=== PATIENT | female | born 1980 | race Caucasian/White ===

== ENCOUNTER 2021-04-25 20:03 | Emergency (ER) | payer OTHER ==
[~2021-04-25] VITALS: Ht 170.2 cm; Wt 81.7 kg
== END 2021-04-25 23:22 | disposition home or self-care (01) ==
LOC: ED 20:03
DX: S61.011A Laceration without foreign body of right thumb without damage to nail, initial encounter (principal); S61.012A Laceration without foreign body of left thumb without damage to nail, initial encounter; S01.112A Laceration without foreign body of left eyelid and periocular area, initial encounter; S61.411A Laceration without foreign body of right hand, initial encounter; S80.812A Abrasion, left lower leg, initial encounter; Z23 Encounter for immunization; V89.9XXA Person injured in unspecified vehicle accident, initial encounter; Z87.891 Personal history of nicotine dependence; Z91.030 Bee allergy status; Z88.2 Allergy status to sulfonamides
CPT/HCPCS: 12002; 12011; 73130; 90471; 90715; 99283-25

== ENCOUNTER 2024-04-04 22:26 | Emergency (ER) | payer BC ==
[~2024-04-04] VITALS: Ht 170.2 cm; Wt 80.0 kg
[2024-04-04] MEDS ORDERED: ondansetron HCL 4 MG/2 ML VIAL IV ONE (22:45)
[2024-04-04] MEDS ORDERED: SODIUM CHLORIDE 0.9% 1,000 ML IV ONE (22:45)
[2024-04-04] MEDS ORDERED: KETOROLAC TROMETHAMINE 30 MG/ML VIAL IV ONE (22:45)
[2024-04-04] MEDS ORDERED: MORPHINE SULFATE 4 MG/ML VIAL IV ONE (22:45)
[2024-04-04 22:52] LABS: HEMOGLOBIN 13.9 g/dL (12.0-18.0); MCH 30.1 (27-36)
[2024-04-04 22:54] LABS: BASOPHILS 0.7 % (0-2); HEMATOCRIT 40.6 % (35.0-50.0); LYMPHOCYTES 27.6 % (24-44); MCHC 34.2 g/dl (30-36); MONOCYTES 6.3 % (0-12); NEUTROPHILS 60.4 % (39-80); PLATELET COUNT 214 K/uL (140-440); RBC 4.61 M/ul (4.3-5.7)
[2024-04-04 23:09] LABS: ALBUMIN 3.8 g/dL (3.4-5.0); ALBUMIN/GLOBULIN RATIO 1.15 (1.1-2.4); ANION GAP 11.8 (7-21); BILIRUBIN, TOTAL 0.3 ng/dL (0.2-1.0); BUN/CREATININE RATIO 16.32 (6.0-28.6); CALCIUM 8.8 mg/dL (8.5-10.1); CREATININE, SERUM 0.98 mg/dL (0.55-1.02); POTASSIUM 3.8 mmol/L (3.5-5.1); PROTEIN, TOTAL 7.1 g/dL (6.4-8.2)
[2024-04-04] MEDS ORDERED: HYDROmorphone HCL 1 MG/ML SYR IV PRN (23:45)
[2024-04-04 23:59] LABS: BILIRUBIN, URINE NEGATIVE (negative); BLOOD/HGB, URINE NEGATIVE (Negative); KETONE, URINE NEGATIVE (Negative); LEUK ESTERASE, URINE NEGATIVE (negative); NITRITE, URINE NEGATIVE (negative)
[2024-04-05] MEDS ORDERED: ONDANSETRON ODT8 MG PO (02:05)
[2024-04-05] MEDS ORDERED: HYDROCODON-ACE1 EA10 PO (02:05)
[2024-04-05] MEDS ORDERED: ONDANSETRON 4 MG HOME.PACK SL ONE (02:15)
[2024-04-05] MEDS ORDERED: HYDROCODONE BIT/ACETAMINOPHEN 5/325 MG 1 TAB HOME.PACK PO ONE (02:15)
[2024-04-05 02:25] VITALS: BP 118/76
== END 2024-04-05 02:25 | disposition home or self-care (01) ==
LOC: ED 22:26
PROVIDERS: Family Medicine
DX: D27.1 Benign neoplasm of left ovary (principal); Z88.2 Allergy status to sulfonamides; Z91.013 Allergy to seafood; Z87.891 Personal history of nicotine dependence
CPT/HCPCS: 36415; 74176; 76830; 76857; 80053; 81003; 84703; 85025; 96374; 96375; 99284-25; A9270; J1170; J1885; J2405; J7030